=== PATIENT | female | born 1990 | race Two or more races ===

== ENCOUNTER 2017-06-16 10:15 | Inpatient (IN) | payer MEDICAID, SELFPAY ==
[2017-06-16] VITALS (18 sets, daily range): BP systolic 128–166; BP diastolic 66–99; PULSE 82–116; RESP 16–26; TEMP 36–37.4; O2SAT 85–96; BMI 43.9; BMI 45.7; BMI 45.8
--- NOTE | 2017-06-16 10:31 | EKG12_ITS ---
Test Reason : COUGH Blood Pressure : / mmHG Vent. Rate : 099 BPM Atrial Rate : 099 BPM P-R Int : 146 ms QRS Dur : 080 ms QT Int : 340 ms P-R-T Axes : 052 056 032 degrees QTc Int : 436 ms Normal sinus rhythm Normal ECG Confirmed by SEAN JOSEPH, MARY ANN ([id number]), field map editor JOVANA MEZA ([id number] on 06/19/2017 2:02:41 PM Referred By: LA Confirmed By:MARY ANN ESTRADA MD
--- NOTE | 2017-06-16 10:33 | ED.VISSUMM ---
- ER Visit Summary Date of Service: 06/16/17 Chief Complaint: Cough and shortness of breath History of Present Illness: The patient is a 27 F who presents with cough and shortness of breath that has been getting worse over the past 3 days. Patient was seen in urgent care and was given a prescription for prednisone and a new inhaler. Patient has been taking this with no relief. Patient states she is coughing up some green sputum. Patient denies any fevers or chills. Patient does admit to some sharp chest pain with coughing. Patient denies any nausea or vomiting. Patient denies any rhinorrhea or sore throat. Patient does have a history of asthma. Physical Examination: Vital signs showed a blood pressure of 148/73, pulse of 107, respiratory rate of 26, temperature of 96.8, and pulse oximeter of 92% on room air. Oral mucosa is pink and moist. Neck is supple. There is no JVD noted. Heart was regular and tachycardic. Lungs showed diffuse wheezing. There is good respiratory effort noted. There are no retractions noted. Abdomen is soft and nontender. Bowel sounds are normal. Cranial nerves II through XII are intact. There are no focal motor or sensory deficits noted. The remaining physical exam is within normal limits. Test Results: EKG shows a normal sinus rhythm with a rate of 99. There are no acute ST or T-wave changes noted. There are no changes compared to previous EKG dated 07/07/2016. CBC showed a leukocytosis of 15.8. Basic metabolic profile is within normal limits. Chest x-ray shows diffuse patchy infiltrates in the right upper lobe, right lower lobe, left upper lobe, and left lower lobe. Emergency Department Course and Treatment: 2 blood cultures were obtained. Patient was started on Rocephin and Zithromax. Patient was given a DuoNeb aerosol here. Case was discussed with Dr. Bill. She will admit the patient to her service. Disposition: Admission to hospital Impression: Community-acquired pneumonia, hypoxia This note was generated with [employer] dictation software. It may contain incorrect words, spelling, and punctuation that were not noted in review of the chart prior to signing ED Disposition - Plan for ED Patient: Disposition: Acute Care Hospital [facility] Chief Complaint: Cough Diagnosis: Community acquired pneumonia, Hypoxia Referrals: Germaine Soto DO [Primary Care Provider] -
[2017-06-16] MEDS: Ipratropium/Albuterol Sulfate 3 ML AMPUL.NEB INHALATION ×3 (10:36→21:37)
--- NOTE | 2017-06-16 10:42 | ED.DCSUM_ITS ---
- ER Visit Summary Date of Service: 06/16/17 Chief Complaint: Cough and shortness of breath History of Present Illness: The patient is a 27 F who presents with cough and shortness of breath that has been getting worse over the past 3 days. Patient was seen in urgent care and was given a prescription for prednisone and a new inhaler. Patient has been taking this with no relief. Patient states she is coughing up some green sputum. Patient denies any fevers or chills. Patient does admit to some sharp chest pain with coughing. Patient denies any nausea or vomiting. Patient denies any rhinorrhea or sore throat. Patient does have a history of asthma. Physical Examination: Vital signs showed a blood pressure of 148/73, pulse of 107, respiratory rate of 26, temperature of 96.8, and pulse oximeter of 92% on room air. Oral mucosa is pink and moist. Neck is supple. There is no JVD noted. Heart was regular and tachycardic. Lungs showed diffuse wheezing. There is good respiratory effort noted. There are no retractions noted. Abdomen is soft and nontender. Bowel sounds are normal. Cranial nerves II through XII are intact. There are no focal motor or sensory deficits noted. The remaining physical exam is within normal limits. Test Results: EKG shows a normal sinus rhythm with a rate of 99. There are no acute ST or T-wave changes noted. There are no changes compared to previous EKG dated 07/07/2016. CBC showed a leukocytosis of 15.8. Basic metabolic profile is within normal limits. Chest x-ray shows diffuse patchy infiltrates in the right upper lobe, right lower lobe, left upper lobe, and left lower lobe. Emergency Department Course and Treatment: 2 blood cultures were obtained. Patient was started on Rocephin and Zithromax. Patient was given a DuoNeb aerosol here. Case was discussed with Dr. Bill. She will admit the patient to her service. Disposition: Admission to hospital Impression: Community-acquired pneumonia, hypoxia This note was generated with [employer] dictation software. It may contain incorrect words, spelling, and punctuation that were not noted in review of the chart prior to signing ED Disposition - Plan for ED Patient: Disposition: Acute Care Hospital [facility] Chief Complaint: Cough Diagnosis: Community acquired pneumonia, Hypoxia Referrals: Germaine Soto DO [Primary Care Provider] -
[2017-06-16 10:47] LABS: Absolute Lymphocyte Count 1.84 X10^3/ul (0.83-4.51); Absolute Neutrophil Count 12.4 X10^3/uL (2.0-7.7); Basophil# 0.04 X10^3/uL; Basophil% 0.3 % (0-1); Eosinophil# 0.32 X10^3/uL; Hematocrit 47.2 % (37-47); Hemoglobin 16.4 g/dl (12.0-15.0); Lymphocyte # 1.84 X10^3/ul (4.0); Lymphocyte % 11.6 % (19-41); Mean Corp Hgb Conc 34.7 g/gl (32-36); Mean Corpuscular Hgb 30.1 pg (27.0-32.0); Mean Corpuscular Volume 86.6 fL (81-99); Mean Platelet Vol. 11.2 fl (6.2-12.0); Monocyte# 1.18 X10^3/uL; Monocyte% 7.4 % (0-10); Neutrophil # 12.41 X10^3/uL (2.7-7.7); Neutrophil % 78.4 % (47-70); Platelet Count 128 K/mm3 (150-450); RBC Distribution Width CV 12.7 % (11.6-14.6); RBC Distribution Width SD 39.9 fl (35.1-43.9); Red Blood Count 5.45 M/mm3 (4.2-5.4); White Blood Count 15.8 K/mm3 (4.4-11.0)
[2017-06-16 10:48] LABS: POSITIVE COUNT NO; POSITIVE DIFFERENTIAL NO; POSITIVE MORPHOLOGY NO
--- NOTE | 2017-06-16 11:01 | RAD_ITS ---
STUDY: X-RAY CHEST REASON FOR EXAM: Female, 27 years old. Shortness of breath and cough for 3 weeks. TECHNIQUE: Frontal and lateral views of the chest. COMPARISON: None. FINDINGS: There are patchy opacities in the right upper lobe, right lower lobe, left upper lobe and left lower lobe. The findings are compatible with multi lobar early/developing pneumonia. There is no demonstrated pleural abnormality. Normal size heart. Normal mediastinum and zoie. Normal visualized pulmonary arteries. Normal visualized aortic arch and descending thoracic aorta. Normal visualized thoracic spine. Normal visualized ribs, clavicles, and shoulders. There is no demonstrated abnormality of the visualized soft tissue structures of the upper abdomen. RAD/Chest PA and Lateral IMPRESSION: Findings compatible with pneumonia, as outlined above. Electronically Signed: Nelson Sharma MD at 11:26 EDT , Service support ,
[2017-06-16 11:04] LABS: Anion Gap 6 (5-15); BUN 12 mg/dL (7-18); BUN/Creat Ratio 17.4 RATIO (10-20); Chloride 104 mmol/L (98-107); Creatinine, Serum 0.69 mg/dL (0.55-1.02); EST Glomerular Filtration Rate 109 mL/min (>60); Est Glom Filt Rate - Afr Amer 132 mL/min (>60); Estimated Creatinine Clearance 111.18 ml/min; Glucose 115 mg/dL (74-106); Potassium 3.6 mmol/L (3.5-5.1); Sodium Level 138 mmol/L (136-145)
[2017-06-16] MEDS: Ceftriaxone 1 GM/50 ML BAG IV ×2 (12:09→21:32)
--- NOTE | 2017-06-16 12:16 | PCM.PN.HOSP ---
Vitals/I&O's: Vital Signs Temp Pulse Resp BP Pulse Ox 96.8 F L 108 H 20 H 157/87 H 85 06/16/17 10:15 06/16/17 10:39 06/16/17 10:39 06/16/17 10:37 06/16/17 10:37 Oxygen Delivery Method Non-Rebreather Weight: 119.7 kg Body Mass Index (BMI) 43.9 Laboratory Results 06/16/17 10:35: WBC 15.8 H, RBC 5.45 H, Hgb 16.4 H, Hct 47.2 H, MCV 86.6, MCH 30.1, MCHC 34.7, RDW 12.7, RDW Differential 39.9, Plt Count 128 L, MPV 11.2, Immature Gran % (Auto) 0.300, Neut % (Auto) 78.4 H, Lymph % (Auto) 11.6 L, [place] % (Auto) 7.4, Eos % (Auto) 2.0, Baso % (Auto) 0.3, Absolute Neuts (auto) 12.4 H, Absolute Lymphs (auto) 1.84, Total Counted Not Reportable 06/16/17 10:35: Sodium 138, Potassium 3.6, Chloride 104, Carbon Dioxide 28.0, Anion Gap 6, BUN 12, Creatinine 0.69, Estim Creat Clear Calc 111.18, Est GFR (MDRD) Af Amer 132, Est GFR (MDRD) Non-Af 109, BUN/Creatinine Ratio 17.4, Glucose 115 H, Calcium 9.0 Current Medications Azithromycin 500 mg/ Dextrose 255 mls @ 250 mls/hr IV X1 ONE Stop: 06/16/17 12:52 Ceftriaxone Sodium (Rocephin) 1 gm in 50 mls @ 100 mls/hr IV X1 ONE Stop: 06/16/17 12:20 Last Admin: 06/16/17 12:09 Dose: 100 mls/hr Medical Necessity - Tobacco Use Smoking Status: Current every day smoker
--- NOTE | 2017-06-16 13:32 | PCM.HP.STD ---
Problem List (1) Depression Status: Chronic Qualifiers: Depression Type: unspecified Qualified Code(s): F32.9 - Major depressive disorder, single episode, unspecified (2) Community acquired pneumonia Status: Acute Qualifiers: Laterality: unspecified laterality Qualified Code(s): J18.9 - Pneumonia, unspecified organism (3) Hypoxia Status: Acute History of Present Illness Date of Admission: 06/16/17 Chief Complaint: Shortness of breath - 3 days The patient is a 27 year old F with past medical history of depression, morbid obesity comes in with complaints of shortness of breath ongoing for 3 days. Patient had had cough that was productive and had gone to the urgent care and was diagnosed with bronchitis and given azithromycin and prednisone. She notes that she became progressively worse, feeling for a short of breath ongoing for the last 3 days. She denied any fever or chills or dizziness or palpitations. She came to the ED and was found to be hypoxic. L show blood pressure 148/73, heart rate of 107, respiratory rate is 28, temperature of 96.8. Admitting blood work showed RBC count of 15.8, hemoglobin 16.4, platelet count of 128, normal chemistries. chest x-ray showed patchy infiltrates. 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 Denies: Anorexia, Chills, Fever, Night Sweats, Weight Change Eyes: Denies: Blurred vision, Cataracts, Conjunctivae Inflammation, Double vision, Drainage HEENT: Denies: Difficulty Hearing, Difficulty Swallowing, Head Aches, Hearing Changes, Nasal bleeding, Sinus Congestion, Sinus Drainage Cardiovascular: Denies: Chest Pain, Claudication, Chest Pressure, Orthopnea, Palpitations, Paroxysmal Noc. Dyspnea Respiratory: Reports: Cough, Shortness of Breath, Shortness of breath at rest, Shortness of breath upon exertion, Sputum production Gastrointestinal: Denies: Abdominal Pain, Hematemesis, Hematochezia, Nausea, Vomiting Genitourinary: Denies: Dysuria, Frequency, Incontinence Gynecological: Denies: Breast symptoms, Excessively long or heavy periods Musculoskeletal: Denies: Joint Pain, Joint stiffness, Joint swelling, Joint Tenderness Skin: Denies: Rash, Wounds Neurological: Denies: Numbness, Tingling, Focal weakness Psychiatric: Denies: Anxiety, Depression, Homicidal Ideations, Suicidal Ideations Hematologic/ Lymphatic: Denies: Easy Bruising, Easy Bleeding VTE Information - Inpt Only VTE Present on Admission: No VTE Pharm Prophylaxis ordered?: Yes Patient Problems: Active and Suspected Problems Community acquired pneumonia (Acute) Hypoxia (Acute) - Physical Exam General: Alert, Oriented x3, Cooperative, - - Morbidly obese, in mild respiratory distress, on nonrebreather HEENT: Atraumatic, PERRLA, EOMI, Normocephalic Oral: Moist Mucosa Neck: Supple Lungs: Normal air movement, Diminished, Wheezes Cardiovascular: Regular rate, Regular Rhythm, Normal S1, Normal S2, No murmurs Abdomen: Bowel Sounds Present, Soft, Non Tender, Non-Distended, No Hepato-splenomegaly Extremities: No edema Skin: No rashes, No breakdown Musculoskeletal: No Tenderness to Palpation of Joints or Extremities Neurological: Cranial nerves II-XII grossly intact Psych/Mental Status: Normal Affect, Appropriate Vital Signs Temp Pulse Resp BP Pulse Ox 96.8 F L 103 H 19 H 166/99 H 96 06/16/17 10:15 06/16/17 13:06 06/16/17 13:06 06/16/17 13:06 06/16/17 13:06 Oxygen Delivery Method Venturi Mask Assessment/Plan Active and Suspected Problems Community acquired pneumonia (Acute) Hypoxia (Acute) 27 year old F with past medical history of depression, morbid obesity comes in with complaints of shortness of breath ongoing for 3 days. She does recently being treated for bronchitis in urgent care and given azithromycin and prednisone. 1. Acute hypoxic respiratory insufficiency secondary to bilateral community-acquired pneumonia, on nonrebreather at the time of being examined Plan: Admit to PCU, managed on oxygen therapy, wean off for SPO2 more than 94%, incentive spirometer, breathing treatments as needed 2. Sepsis(tachycardia, leukocytosis) secondary to Bilateral community-acquired pneumonia in the setting of recent respiratory illness, chest x-ray shows bilateral patchy infiltrates, will continue on IV ceftriaxone, azithromycin and add vancomycin for MRSA, MRSA PCR, urine for Legionella and streptococcal antigen, blood cultures ?2 taken the ER and pending, trend labs in the morning, respiratory panel, droplet isolation until results of panel, 3. Depression, continue on home medication 4. Morbid obesity, diet and exercise recommended 5. DVT prophylaxis with ambulation Code Visit Inpatient E&M: 03871 Subs Hosp L3
[2017-06-16] MEDS: 0.9% Normal Saline 1,000 ML 75 ML IV (14:52)
--- NOTE | 2017-06-16 15:06 | PCM.RX.CS ---
Consult Pharmacy has been consulted to manage selected antiobiotic: Vancomycin Type of Consult: New start Suspected Infection: Pneumonia Labs: Sodium 138 mmol/L (136-145) 06/16/17 10:35 Potassium 3.6 mmol/L (3.5-5.1) 06/16/17 10:35 Chloride 104 mmol/L (98-107) 06/16/17 10:35 Carbon Dioxide 28.0 mmol/L (21.0-32.0) 06/16/17 10:35 Anion Gap 6 (5-15) 06/16/17 10:35 BUN 12 mg/dL (7-18) 06/16/17 10:35 Creatinine 0.69 mg/dL (0.55-1.02) 06/16/17 10:35 Est GFR (MDRD) Af Amer 132 mL/min (>60) 06/16/17 10:35 Est GFR (MDRD) Non-Af 109 mL/min (>60) 06/16/17 10:35 BUN/Creatinine Ratio 17.4 RATIO (10-20) 06/16/17 10:35 Glucose 115 mg/dL (74-106) H 06/16/17 10:35 Weight used for dosin.7 kg Estimated Creatinine Clearance: 111 ml/min Goal Trough: 15-20 mcg/mL Pharmacy Plan for Drug Dosing: Renal function reviewed with Cr 0.7 and CrCl 111 Initial dose to be 1500mg IV q8h Will get trough level before 5th dose on 5.5.18 @4990 Pharmacy Service will continue to monitor and adjust dosing as required.
--- NOTE | 2017-06-16 15:13 | PHA.PHARE_ITS ---
Consult Pharmacy has been consulted to manage selected antiobiotic: Vancomycin Type of Consult: New start Suspected Infection: Pneumonia Labs: Sodium 138 mmol/L (136-145) 06/16/17 10:35 Potassium 3.6 mmol/L (3.5-5.1) 06/16/17 10:35 Chloride 104 mmol/L (98-107) 06/16/17 10:35 Carbon Dioxide 28.0 mmol/L (21.0-32.0) 06/16/17 10:35 Anion Gap 6 (5-15) 06/16/17 10:35 BUN 12 mg/dL (7-18) 06/16/17 10:35 Creatinine 0.69 mg/dL (0.55-1.02) 06/16/17 10:35 Est GFR (MDRD) Af Amer 132 mL/min (>60) 06/16/17 10:35 Est GFR (MDRD) Non-Af 109 mL/min (>60) 06/16/17 10:35 BUN/Creatinine Ratio 17.4 RATIO (10-20) 06/16/17 10:35 Glucose 115 mg/dL (74-106) H 06/16/17 10:35 Weight used for dosin.7 kg Estimated Creatinine Clearance: 111 ml/min Goal Trough: 15-20 mcg/mL Pharmacy Plan for Drug Dosing: Renal function reviewed with Cr 0.7 and CrCl 111 Initial dose to be 1500mg IV q8h Will get trough level before 5th dose on 5.5.18 @2130 Pharmacy Service will continue to monitor and adjust dosing as required.
[2017-06-16] MEDS: Famotidine 20 MG Tablet PO (21:31)
[2017-06-16] MEDS: guaiFENesin 1,200 MG Tablet 1200 MG PO (21:31)
[2017-06-17] VITALS (20 sets, daily range): BP systolic 126–144; BP diastolic 69–74; PULSE 37–99; RESP 16–18; TEMP 36.6–37.7; O2SAT 92–96
[2017-06-17] MEDS: Ipratropium/Albuterol Sulfate 3 ML AMPUL.NEB INHALATION ×7 (00:53→23:12)
[2017-06-17] MEDS: 0.9% Normal Saline 1,000 ML 75 ML IV (06:14)
[2017-06-17 06:19] LABS: Hematocrit 43.5 % (37-47); Hemoglobin 14.3 g/dl (12.0-15.0); Mean Corp Hgb Conc 32.9 g/gl (32-36); Mean Corpuscular Hgb 29.2 pg (27.0-32.0); Mean Corpuscular Volume 88.8 fL (81-99); Mean Platelet Vol. 10.8 fl (6.2-12.0); Platelet Count 123 K/mm3 (150-450); RBC Distribution Width CV 12.9 % (11.6-14.6); RBC Distribution Width SD 41.6 fl (35.1-43.9); White Blood Count 9.3 K/mm3 (4.4-11.0)
[2017-06-17 06:41] LABS: Anion Gap 6 (5-15); BUN 7 mg/dL (7-18); BUN/Creat Ratio 10.4 RATIO (10-20); Calcium,Total 8.4 mg/dL (8.5-10.1); Chloride 106 mmol/L (98-107); Creatinine, Serum 0.67 mg/dL (0.55-1.02); EST Glomerular Filtration Rate 113 mL/min (>60); Est Glom Filt Rate - Afr Amer 137 mL/min (>60); Glucose 114 mg/dL (74-106); Potassium 3.9 mmol/L (3.5-5.1); Sodium Level 142 mmol/L (136-145)
[2017-06-17 06:50] LABS: Scan Indicated on CBC? Y/N NO
[2017-06-17] MEDS: guaiFENesin 1,200 MG Tablet 1200 MG PO ×2 (09:59→21:13)
[2017-06-17] MEDS: Famotidine 20 MG Tablet PO ×2 (09:59→21:13)
[2017-06-17] MEDS: Ceftriaxone 1 GM/50 ML BAG IV (10:07)
--- NOTE | 2017-06-17 10:59 | PN_ITS ---
Patient Problems: Active and Suspected Problems Community acquired pneumonia (Acute) Hypoxia (Acute) Subjective: Patient was seen and examined. Feels much improved. Off oxygen, feels that her breathing is better with her breathing treatment. Denies any fever or chills or shortness of breath. Objective: Physical Exam General: Alert, Oriented x3, Cooperative, he has improved, on oxygen, getting breathing treatment HEENT: Atraumatic, PERRLA, EOMI, Normocephalic Oral: Moist Mucosa Neck: Supple Lungs: Normal air movement, Diminished, Wheezes Cardiovascular: Regular rate, Regular Rhythm, Normal S1, Normal S2, No murmurs Abdomen: Bowel Sounds Present, Soft, Non Tender, Non-Distended, No Hepato- splenomegaly Extremities: No edema Skin: No rashes, No breakdown Musculoskeletal: No Tenderness to Palpation of Joints or Extremities Neurological: Cranial nerves II-XII grossly intact Psych/Mental Status: Normal Affect, Appropriate Vitals/I&O's: Vital Signs Temp Pulse Resp BP Pulse Ox 98.3 F 88 17 138/71 H 94 06/17/17 09:56 06/17/17 09:56 06/17/17 09:56 06/17/17 09:56 06/17/17 09:56 Oxygen Flow Rate (L/min) 2 Oxygen Delivery Method Nasal Cannula Weight: 124.738 kg Body Mass Index (BMI) 45.7 Intake and Output for Last 24 Hours 06/15/17 06/16/17 06/17/17 23:59 23:59 23:59 Intake Total 2453 / 2453 731 / 731 Balance 2453 / 2453 731 / 731 Microbiology Past 72 Hours 06/16/17 15:03 Mucosa - Nasopharyngeal Respiratory Panel (PCR) - Final Rhinovirus 06/16/17 16:00 Urine, Clean Catch Streptococcus pneumoniae Antigen (M - Final 06/16/17 16:00 Urine, Clean Catch Legionella Antigen - Final Laboratory Results 06/17/17 05:58: Sodium 142, Potassium 3.9, Chloride 106, Carbon Dioxide 30.0, Anion Gap 6, BUN 7, Creatinine 0.67, Estim Creat Clear Calc 114.50, Est GFR ( MDRD) Af Amer 137, Est GFR (MDRD) Non-Af 113, BUN/Creatinine Ratio 10.4, Glucose 114 H, Calcium 8.4 L 06/17/17 05:58: WBC 9.3, RBC 4.90, Hgb 14.3, Hct 43.5, MCV 88.8, MCH 29.2, MCHC 32.9, RDW 12.9, RDW Differential 41.6, Plt Count 123 L, MPV 10.8 Current Medications Acetaminophen (Tylenol) 650 mg PO Q6H PRN PRN PRN Reason: Mild Pain (1-3)/Temp > 100.7 F Albuterol/Ipratropium (Duoneb) 3 ml INHALATION Q4H.RT ON LICENSE OF [facility] Last Admin: 06/17/17 07:23 Dose: 3 ml Bisacodyl (Dulcolax) 5 mg PO DAILY PRN PRN PRN Reason: Constipation Famotidine (Pepcid) 20 mg PO BID ON LICENSE OF [facility] Last Admin: 06/17/17 09:59 Dose: 20 mg Fluoxetine HCl (Prozac) 40 mg PO DAILY ON LICENSE OF [facility] Last Admin: 06/17/17 10:03 Dose: Not Given Guaifenesin (Mucinex) 1,200 mg PO BID ON LICENSE OF [facility] Last Admin: 06/17/17 09:59 Dose: 1,200 mg Sodium Chloride () 1,000 mls @ 75 mls/hr IV .[id number] ON LICENSE OF [facility] Last Admin: 06/17/17 06:14 Dose: 75 mls/hr Azithromycin 500 mg/ Dextrose 255 mls @ 250 mls/hr IV Q24 ON LICENSE OF [facility] Stop: 06/19/17 11:02 Ceftriaxone Sodium (Rocephin) 1 gm in 50 mls @ 100 mls/hr IV Q12 ON LICENSE OF [facility] Last Admin: 06/17/17 10:07 Dose: 100 mls/hr Vancomycin HCl 1,500 mg/ (Sodium Chloride) 530 mls @ 250 mls/hr IV Q8H ON LICENSE OF [facility] Last Admin: 06/17/17 07:55 Dose: 250 mls/hr Magnesium Hydroxide (Milk Of Magnesia) 30 ml PO DAILY PRN PRN Reason: Constipation Ondansetron HCl (Zofran) 4 mg IV Q8H PRN PRN PRN Reason: NAUSEA Psyllium Hydrophilic Mucilloid (Metamucil) 1 packet PO DAILY PRN PRN PRN Reason: CONSTIPATION Sodium Chloride () 5 - 30 ml IV UD PRN PRN Reason: SALINE FLUSH Medical Necessity - Tobacco Use Smoking Status: Current every day smoker Tobacco Use: Cigarettes Assessment/Plan Active and Suspected Problems Community acquired pneumonia (Acute) Hypoxia (Acute) 27 year old F with past medical history of depression, morbid obesity comes in with complaints of shortness of breath ongoing for 3 days. She does recently being treated for bronchitis in urgent care and given azithromycin and prednisone. 1. Acute hypoxic respiratory insufficiency secondary to bilateral community- acquired pneumonia, improved, on room air, continue on incentive spirometer, will assess for ambulatory oxygen requirement in am. 2. Sepsis(tachycardia, leukocytosis) secondary to Bilateral community-acquired pneumonia/acute bronchitis secondary to rhinovirus, present on admission chest x-ray shows bilateral patchy infiltrates, on IV ceftriaxone, azithromycin and vancomycin. WBC count is improved to 9.3, continue the same and possibly switch to Augmentin and doxycycline from tomorrow. 3. Depression, continue on home medication 4. Morbid obesity, diet and exercise recommended 5. DVT prophylaxis with ambulation 6. Disposition: Possible discharge tomorrow if she continues to improve Code Visit Inpatient E&M: 13680 Subs Hosp L2
--- NOTE | 2017-06-17 14:06 | CASEMGMT ---
CM INITIAL ASSESSMENT: Home: Patient states she lives with her boyfriend, Elliot, in a one story home. HHS/Aides: Denies. DME: Denies Pharmacy: [facility] Advance Directives: Denies. Declines assistance at this time. PCP: Germaine Soto Specialists: Psychiatry - Kristal Shin at [facility]. Patient denies further mental health needs at this time. DC Plan: Home. CM will continue to follow for safe and effective discharge planning.
[2017-06-17 16:00] LABS: M R Staph aureus DNA By PCR Negative (Negative); Probe Check PASS; Specimen Processing Control PASS
[2017-06-18] VITALS (7 sets, daily range): BP systolic 126–138; BP diastolic 74–86; PULSE 77–100; RESP 15–18; TEMP 37.1–37.6; O2SAT 91–94
[2017-06-18 01:13] LABS: Vancomycin, Trough Level 8.7 ug/mL (5.0-15.0)
[2017-06-18] MEDS: Ipratropium/Albuterol Sulfate 3 ML AMPUL.NEB INHALATION ×3 (03:17→10:59)
--- NOTE | 2017-06-18 08:26 | PCM.DC ---
- Discharge Diagnoses Current Active Problems: Current Active and Chronic Problems Community acquired pneumonia (Acute) Hypoxia (Acute) Depression (Chronic) Reason(s) for Visit for Discharge Instructions: Cough, Shortness of breath You will use the following diet at home:: Regular Your food should be the consistency of: Regular Your liquids should be the consistency of: Regular/Thin Discharge Activity: Return to Normal Activity Additional Instructions: Complete all your antibiotics as prescribed. You are being discharged with a short course of steroids. Continue to use your inhaler every 4-6 hours round the clock for the next 2 days then use as needed. Allergies/Adverse Reactions: Allergies Penicillins Allergy (Verified 08/04/16 09:00) Rash Medications to take at Discharge Methylphenidate HCl [Concerta] 36 mg PO DAILY 06/16/17 Paroxetine HCl [Paxil] 40 mg PO DAILY 06/17/17 Doxycycline 100 mg PO DAILY #14 cap 06/18/17 Guaifenesin [Mucinex] 1,200 mg PO BID #14 tab 06/18/17 Prednisone 40 mg PO DAILY #10 tab 06/18/17 levoFLOXacin tablet [Levaquin tablet] 750 mg PO DAILY #7 tab 06/18/17 The following prescriptions were given: Doxycycline 100 mg PO DAILY #14 cap levoFLOXacin tablet [Levaquin tablet] 750 mg PO DAILY #7 tab Prednisone 40 mg PO DAILY #10 tab Guaifenesin [Mucinex] 1,200 mg PO BID #14 tab Please follow up with your Primary Care Physician in: within 2 weeks Proposed Discharge Date: 06/18/17
--- NOTE | 2017-06-18 08:33 | PCM.DC.SUM ---
Discharge Date and Diagnosis - Problem List Patient Problems: Active and Suspected Problems Community acquired pneumonia (Acute) Hypoxia (Acute) Date of Admission: 06/16/17 Date of Discharge: 06/18/17 - Primary Discharge Diagnosis Active and Suspected Problems Sepsis Bilateral Community acquired pneumonia (Acute) secondary to suspected atypical, gram positive and negative organisms Acute Rhinovirus bronchitis Hypoxia (Acute) - Secondary Discharge Diagnosis Chronic Problems Depression (Chronic) Morbid obesity Hospital Course and Treatment Imaging Results: Clinical Impression(s) from Imaging Studies Chest X-Ray 06/16/17 11:01 IMPRESSION: Findings compatible with pneumonia, as outlined above. Electronically Signed: Nelson Sharma MD at 11:26 EDT , Service support , None Operations: None Procedures: None Summary of Care Provided: 27 year old F with past medical history of depression, morbid obesity, asthma comes in with complaints of shortness of breath ongoing for 3 days. She was recently treated for bronchitis in urgent care and given azithromycin and prednisone. Patient was hypoxic in the ED, saturating 85% on Room air, managed subsequently on non-rebreather oxygen mask. CXR showed bilateral patchy right upper lobe, lower lobe, left upper lobe, lower lobe pneumonia. 1. Acute hypoxic respiratory insufficiency secondary to bilateral community-acquired pneumonia,managed on oxygen, wean off to room air, did not qualify for home oxygen. 2. Sepsis(tachycardia, leukocytosis) secondary to Bilateral community-acquired pneumonia, likely secondary to suspected atypical organisms, gram positive and gram negative. Most likely post viral bronchitis pneumonia. Urine for streptococcal and legionella antigen was negative. Blood cultures were still pending at the time of discharge. Managed on IV ceftriazone, azithromycin and vancomycin. WBC count improved, patient felt better clinically. Discharged on Levaquin and doxycycline for 1 week. 3. Acute bronchitis secondary to rhinovirus, present on admission, managed symptomatically with breathing treatments, discharged on prednisone. 4. Depression, continue on home medication 5. Morbid obesity - diet and exercise recommended Discharge Diet: No Restrictions Discharge Activity: Return to Normal Activity Home Medications: Medications to take at Discharge Methylphenidate HCl [Concerta] 36 mg PO DAILY 06/16/17 Paroxetine HCl [Paxil] 40 mg PO DAILY 06/17/17 Doxycycline 100 mg PO DAILY #14 cap 06/18/17 Guaifenesin [Mucinex] 1,200 mg PO BID #14 tab 06/18/17 Prednisone 40 mg PO DAILY #10 tab 06/18/17 levoFLOXacin tablet [Levaquin tablet] 750 mg PO DAILY #7 tab 06/18/17 Following Prescrptions Were Given to Patient: Doxycycline 100 mg PO DAILY #14 cap levoFLOXacin tablet [Levaquin tablet] 750 mg PO DAILY #7 tab Prednisone 40 mg PO DAILY #10 tab Guaifenesin [Mucinex] 1,200 mg PO BID #14 tab Primary Care Physician: Germaine Soto DO [Primary Care Provider] - Please follow up with your Primary Care Physician in: within 2 weeks Disposition: Home Minutes spent on discharge:: 40 Patient Condition:: Stable Medical Necessity - Tobacco Use Smoking Status: Current every day smoker Tobacco Use: Cigarettes Meaningful Use Info Meaningful Use Diagnoses (Choose all that apply): None applicable Code Visit Inpatient E&M: 41139 Disch Hosp
--- NOTE | 2017-06-18 08:44 | DS.PCM_ITS ---
Discharge Date and Diagnosis - Problem List Patient Problems: Active and Suspected Problems Community acquired pneumonia (Acute) Hypoxia (Acute) Date of Admission: 06/16/17 Date of Discharge: 06/18/17 - Primary Discharge Diagnosis Active and Suspected Problems Sepsis Bilateral Community acquired pneumonia (Acute) secondary to suspected atypical, gram positive and negative organisms Acute Rhinovirus bronchitis Hypoxia (Acute) - Secondary Discharge Diagnosis Chronic Problems Depression (Chronic) Morbid obesity Hospital Course and Treatment Imaging Results: Clinical Impression(s) from Imaging Studies Chest X-Ray 06/16/17 11:01 IMPRESSION: Findings compatible with pneumonia, as outlined above. Electronically Signed: Nelson Sharma MD at 11:26 EDT , Service support , None Operations: None Procedures: None Summary of Care Provided: 27 year old F with past medical history of depression, morbid obesity, asthma comes in with complaints of shortness of breath ongoing for 3 days. She was recently treated for bronchitis in urgent care and given azithromycin and prednisone. Patient was hypoxic in the ED, saturating 85% on Room air, managed subsequently on non-rebreather oxygen mask. CXR showed bilateral patchy right upper lobe, lower lobe, left upper lobe, lower lobe pneumonia. 1. Acute hypoxic respiratory insufficiency secondary to bilateral community- acquired pneumonia,managed on oxygen, wean off to room air, did not qualify for home oxygen. 2. Sepsis(tachycardia, leukocytosis) secondary to Bilateral community-acquired pneumonia, likely secondary to suspected atypical organisms, gram positive and gram negative. Most likely post viral bronchitis pneumonia. Urine for streptococcal and legionella antigen was negative. Blood cultures were still pending at the time of discharge. Managed on IV ceftriazone, azithromycin and vancomycin. WBC count improved, patient felt better clinically. Discharged on Levaquin and doxycycline for 1 week. 3. Acute bronchitis secondary to rhinovirus, present on admission, managed symptomatically with breathing treatments, discharged on prednisone. 4. Depression, continue on home medication 5. Morbid obesity - diet and exercise recommended Discharge Diet: No Restrictions Discharge Activity: Return to Normal Activity Home Medications: Medications to take at Discharge Methylphenidate HCl [Concerta] 36 mg PO DAILY 06/16/17 Paroxetine HCl [Paxil] 40 mg PO DAILY 06/17/17 Doxycycline 100 mg PO DAILY #14 cap 06/18/17 Guaifenesin [Mucinex] 1,200 mg PO BID #14 tab 06/18/17 Prednisone 40 mg PO DAILY #10 tab 06/18/17 levoFLOXacin tablet [Levaquin tablet] 750 mg PO DAILY #7 tab 06/18/17 Following Prescrptions Were Given to Patient: Doxycycline 100 mg PO DAILY #14 cap levoFLOXacin tablet [Levaquin tablet] 750 mg PO DAILY #7 tab Prednisone 40 mg PO DAILY #10 tab Guaifenesin [Mucinex] 1,200 mg PO BID #14 tab Primary Care Physician: Germaine Soto DO [Primary Care Provider] - Please follow up with your Primary Care Physician in: within 2 weeks Disposition: Home Minutes spent on discharge:: 40 Patient Condition:: Stable Medical Necessity - Tobacco Use Smoking Status: Current every day smoker Tobacco Use: Cigarettes Meaningful Use Info Meaningful Use Diagnoses (Choose all that apply): None applicable Code Visit Inpatient E&M: 63548 Disch Hosp
[2017-06-18] MEDS: Famotidine 20 MG Tablet PO (09:35)
[2017-06-18] MEDS: guaiFENesin 1,200 MG Tablet 1200 MG PO (09:35)
[2017-06-18] MEDS: Ceftriaxone 1 GM/50 ML BAG IV (10:43)
== END 2017-06-18 13:18 | disposition home or self-care (01) | DRG 416 ==
LOC: ED 12:13 → PCU 12:39
PROVIDERS: Admitting Provider Internal Medicine; Emergency Provider Emergency Medicine; Visit Provider Internal Medicine
DX: A41.9 Sepsis, unspecified organism (principal); J15.6 Pneumonia due to other Gram-negative bacteria; R06.89 Other abnormalities of breathing; R09.02 Hypoxemia; J20.6 Acute bronchitis due to rhinovirus; F17.210 Nicotine dependence, cigarettes, uncomplicated; J45.909 Unspecified asthma, uncomplicated; F32.9 Major depressive disorder, single episode, unspecified; E66.01 Morbid (severe) obesity due to excess calories; Z68.42 Body mass index [BMI] 45.0-49.9, adult; Z79.899 Other long term (current) drug therapy
CPT/HCPCS: 36415; 71046; 80048; 80202; 85025; 85027; 87040; 87449; 87633; 87641; 93005; 94640; 99251; 99285; 99406; J7030; J7040; G0463

== ENCOUNTER → 2018-05-09 17:23 | Outpatient (CLI) | payer MEDICAID, SELFPAY | PROVIDERS: Referring Provider Obstetrics & Gynecology; Visit Provider Obstetrics & Gynecology | DX: N39.0 Urinary tract infection, site not specified (principal) | CPT/HCPCS: 87086; 87088; 87186 ==

== ENCOUNTER → 2018-05-18 14:09 | Outpatient (CLI) | payer MEDICAID, SELFPAY ==
[2017-06-16 13:35] VITALS: BMI 45.7
[2018-05-23 15:19] LABS: HPV APTIMA, High Risk Positive (Negative)
== END ==
PROVIDERS: Visit Provider Obstetrics & Gynecology
DX: Z12.4 Encounter for screening for malignant neoplasm of cervix (principal)
CPT/HCPCS: 87624; 88175; G0145

== ENCOUNTER → 2019-10-03 07:03 | Outpatient (CLI) | payer OTHER, SELFPAY ==
[2019-10-03 08:13] LABS: Glucose 75GTT - Fasting 110 mg/dL (70-99)
[2019-10-03 08:18] LABS: Glucose 75GTT - 30 minutes 196 mg/dL (100-160)
[2019-10-03 08:26] LABS: Insulin 21.5 mU/L (2.6-37.6)
[2019-10-03 08:50] LABS: Glucose 75GTT - 60 minutes 163 mg/dL (100-160)
[2019-10-03 10:27] LABS: Glucose 75GTT - 120 minutes 119 mg/dL (70-140)
== END ==
LOC: LAB 07:04
PROVIDERS: Referring Provider Obstetrics & Gynecology Reproductive Endocrinology; Visit Provider Obstetrics & Gynecology Reproductive Endocrinology
DX: N96 Recurrent pregnancy loss (principal)
CPT/HCPCS: 36415; 82951; 82952; 83525

== ENCOUNTER 2020-08-14 12:20 | Emergency (ER) | payer BC, SELFPAY ==
[2020-08-14 12:21] VITALS: BP 129/76; PULSE 105; RESP 15; TEMP 36.3; O2SAT 99; BMI 44.7
--- NOTE | 2020-08-14 12:45 | US_ITS ---
STUDY: FIRST TRIMESTER OBSTETRICAL ULTRASOUND REASON FOR EXAM: Female, 30 years old RLQ pain, currently 14 weeks preg LMP: 05/11/2020 TECHNIQUE: Transabdominal and Transvaginal TECHNICAL QUALITY: Limited. Examination limited due to obesity. PRIOR ULTRASOUND: None. FINDINGS: There is visualization of a single gestational sac in a normal intrauterine position. The mean sac diameter (MSD) measures 6.46 cm. There is no demonstrated yolk sac. There is visualization of the placenta. The placenta lies on the posterior wall of the uterus. There is visualization of a live embryo. The crown-rump length (CRL) measures 6.81 cm, indicating an estimated gestational age (EGA) of 13 weeks, 1 days. There is demonstrated cardiac activity with a heart rate of 144 bpm. The estimated gestation age (EGA) by LMP is 13 weeks, 4 days. The estimated date of delivery (NGUYỄN) by LMP is 02/15/2021. The estimated gestation age (EGA) by US is 13 weeks, 1 days. The estimated date of delivery (GNUYỄN) by US is 02/18/2021. The uterus measures 13.3 cm x 7.6 cm x 6.7 cm. There is no demonstrated uterine fibroid. The cervix is closed. The right ovary was not visualized. The left ovary was not visualized. There is no fluid in the cul de sac. US/Init OB < 14Wks US IMPRESSION: Single live intrauterine gestation with a mean gestational age of 13 weeks and 1 day. Electronically Signed: Kin Mooney MD at 14:31 EDT , Service support ,
--- NOTE | 2020-08-14 12:58 | EDS_ITS ---
HPI History of Present Illness Chief Complaint: Abd Pain Informant: patient Narrative Narrative: Patient is a 30-year-old female with a past medical history of hypothyroidism who is currently 14 weeks who presents to the emerge department for right lower quadrant abdominal pain. Started earlier today. She states that she was in tears initially but it seems to have eased up slightly. She has not taken anything for this. No known aggravating relieving factors. She denies any vaginal bleeding or discharge. No urinary symptoms. No change in bowel movements. She states over the past week she has been nauseous and vomiting with the . She denies any fevers or chills. She states that she called her MAIL DELIVERY SUPERVISOR's office who referred her to the emergency department. Patient states she has had 2 other pregnancies which ended in miscarriage. PFSH PFSH Home Medications methylphenidate HCl [Concerta] 36 mg PO DAILY 06/16/17 [History Last Taken Unknown] paroxetine HCl [Paxil] 40 mg PO DAILY 06/17/17 [History Last Taken 06/15/17 08:00] doxycycline monohydrate 100 mg PO DAILY #14 cap 06/18/17 [Rx Last Taken Unknown] guaifenesin 1,200 mg PO BID #14 tab 06/18/17 [Rx Last Taken Unknown] levofloxacin 750 mg PO DAILY #7 tab 06/18/17 [Rx Last Taken Unknown] prednisone 40 mg PO DAILY #10 tab 06/18/17 [Rx Last Taken Unknown] ondansetron 4 mg PO Q8H 3 Days #9 tab 08/14/20 [Rx Last Taken Unknown] Allergy/AdvReac Type Severity Reaction Status Date / Time Penicillins Allergy Rash Verified 08/14/20 12:20 Social History Smoking Status: Current every day smoker tobacco type: cigarettes ROS ROS ED Constitutional Constitutional ED: Denies chills or fever(s) Eyes Eyes: Denies change in vision ENT ENT ED: Denies epistaxis or rhinorrhea Cardiovascular Cardiovascular: Denies chest pain or palpitations Respiratory/Chest Respiratory/Chest: Denies cough, dyspnea or dyspnea on exertion Gastrointestinal Gastrointestinal: Reports abdominal pain, nausea and vomiting; Denies diarrhea Genitourinary Genitourinary ED: Denies dysuria, hematuria or urinary frequency Musculoskeletal Musculoskeletal: Denies back pain or neck pain Integumentary Denies rash Neurologic Neurologic: Denies dizziness, headache(s) or weakness EXAM Physical Exam Const Vital Signs: 08/14/20 12:21 Temperature 97.4 F L Temperature Source Temporal Pulse Rate 105 H Respiratory Rate 15 Blood Pressure 129/76 H Blood Pressure Mean 93 Pulse Ox 99 Oxygen Delivery Method Room Air Positive well nourished and well developed General Appearance ED: well developed and NAD HEENT Reports normocephalic and head/scalp atraumatic Eyes PERRL and EOMs intact bilaterally Neck supple Chest Wall inspection of chest normal Resp normal respiratory effort and clear to auscultation bilaterally Auscultation: Negative for rales, rhonchi or wheezes Cardio regular rate, regular rhythm and no murmurs GI normal to inspection, nondistended, normoactive bowel sounds GI Narrative: Tenderness to right lower quadrant. This is very mild to deep palpation. Negative psoas sign. Negative Rovsing sign. Palpation: soft; Negative for guarding or rebound tenderness present Back/Spine no CVA tenderness Extremity normal to inspection General Extremety ED: Negative for edema or tenderness General Extremity: Negative for edema Neuro oriented x3, CN's II-XII intact bilaterally and no sensory deficits noted Sensorium / Orientation: alert Motor Exam: strength 5/5 throughout Psych mental status grossly normal Skin no rashes or lesions noted MDM MDM MDM Narrative Medical decision making narrative: Patient presents the ED for right lower quadrant pain. She has also been nauseous or vomiting but this is begun over the past week and she relates it to her . On arrival to the emergency department she is borderline tachycardic but otherwise vital signs are okay. She does have a very benign exam. Will check ultrasound of the pelvis as well as basic lab work. Ultrasound shows single live intrauterine . However did not reveal a high white blood cell count. She is not anemic. Liver enzymes within normal limits. She does not have acute electrolyte abnormality. Urine does have 2+ bacteria but also had 10-25 squamous epithelial cells. No other evidence of acute infection. With 0-5 white blood cells. We will hold off on doing any treatment of this. She has a benign exam. Of low concern for appendicitis. She is feeling better. She is requesting prescription for Zofran giving her nausea/vomiting. This will be called into her pharmacy. She is to follow-up with her PCP. She will for any systemic symptoms or worsening pain she needs to be reevaluated here in the ED. Lab Data Labs: Laboratory Results - last 24 hr 08/14/20 08/14/20 08/14/20 12:54 13:00 13:00 WBC 9.6 RBC 4.58 Hgb 13.8 Hct 40.1 MCV 87.6 MCH 30.1 MCHC 34.4 RDW Std Deviation 38.3 RDW Coeff of [place] 11.9 Plt Count 179 MPV 10.2 Immature Gran % (Auto) 0.400 Neut % (Auto) 66.2 Lymph % (Auto) 25.3 [place] % (Auto) 5.4 Eos % (Auto) 2.3 Baso % (Auto) 0.4 Absolute Neuts (auto) 6.3 Absolute Lymphs (auto) 2.42 Nucleated RBC % 0 Sodium 136 Potassium 4.0 Chloride 105 Carbon Dioxide 27.0 Anion Gap 4 L BUN 5 L Creatinine 0.49 L Estim Creat Clear Calc 152.44 Est GFR (MDRD) Af Amer 190 Est GFR (MDRD) Non-Af 157 BUN/Creatinine Ratio 10.1 Glucose 98 Calcium 9.4 Total Bilirubin 0.50 AST 8 L ALT 20 Alkaline Phosphatase 57 Total Protein 7.4 Albumin 3.7 Globulin 3.7 Albumin/Globulin Ratio 1.0 Urine Color Yellow Urine Clarity Cloudy Urine pH 8.0 Ur Specific [place] 1.010 Urine Protein Negative Urine Glucose (UA) Normal Urine Ketones Negative Urine Occult Blood Negative Urine Nitrite Negative Urine Bilirubin Negative Urine Urobilinogen Normal Ur Leukocyte Esterase 25 H Urine RBC 0 SEEN Urine WBC 0-5 SEEN Ur Squamous Epith Cells 10-25 SEEN Urine Bacteria 2+ Urine Mucus 0 SEEN Radiography Diagnostic Testing: Radiology Impression Obstetrics Ultrasound 08/14/20 12:45 IMPRESSION: Single live intrauterine gestation with a mean gestational age of 13 weeks and 1 day. Electronically Signed: Kin Mooney MD at 14:31 EDT , Service support , Discharge Plan Triage Chief Complaint: Abd Pain ED Provider: Dre Mckay Dx/Rx/DC Orders Clinical Impression: Abdominal pain Instructions: ED Abdominal Pain, Early Prescriptions: New ondansetron 4 mg tablet,disintegrating 4 mg PO Q8H 3 Days Qty: 9 RF: 0 No Action methylphenidate HCl [Concerta] 36 mg tablet extended release 24hr 36 mg PO DAILY RF: 0 paroxetine HCl [Paxil] 40 MG tablet 40 mg PO DAILY RF: 0 guaifenesin 1,200 MG tablet 1,200 mg PO BID Qty: 14 RF: 0 doxycycline monohydrate 100 MG capsule 100 mg PO DAILY Qty: 14 RF: 0 levofloxacin 750 MG tablet 750 mg PO DAILY Qty: 7 RF: 0 prednisone 20 MG tablet 40 mg PO DAILY Qty: 10 RF: 0 Primary Care Provider: Care Physician,No Primary Referrals: Care Physician,No Primary [Primary Care Provider] - Activity Restrictions/Additional Instructions: Please follow-up with your MAIL DELIVERY SUPERVISOR in 3-5 days. Disposition Disposition: Home, Self Care
[2020-08-14 13:00] LABS: Mucous, Urine 0 SEEN /hpf (<or=2+); Red Blood Cells-Urine 0 SEEN /hpf (0-5)
[2020-08-14 13:04] LABS: Color, Urine Yellow (Yellow); Glucose, Dipstick Normal (Normal); Ketone-Dipstick Negative (Negative); Leukocyte Esterase-Dipstick 25 /ul (Negative); Nitrite-Dipstick Negative (Negative); Occult Blood-Urine Negative /ul (Negative); Protein-Dipstick Negative (Negative); Urine Bilirubin Dipstick Negative (Negative); Urine Clarity Cloudy (Clear); Urine Urobilinogen Normal (Normal)
[2020-08-14 13:09] LABS: Absolute Lymphocyte Count 2.42 X10^3/uL (0.83-4.51); Absolute Neutrophil Count 6.3 X10^3/uL (2.0-7.7); Basophil# 0.04 X10^3/uL; Basophil% 0.4 % (0-1); Eosinophil# 0.22 X10^3/uL; Eosinophils% 2.3 % (0-5); Hematocrit 40.1 % (37-47); Hemoglobin 13.8 g/dL (12.0-15.0); Lymphocyte # 2.42 X10^3/ul (0.83-4.51); Lymphocyte % 25.3 % (19-41); Mean Corp Hgb Conc 34.4 g/dL (32-36); Mean Corpuscular Hgb 30.1 pg (27.0-32.0); Mean Corpuscular Volume 87.6 fL (81-99); Mean Platelet Vol. 10.2 fl (6.2-12.0); Monocyte# 0.52 X10^3/uL; Monocyte% 5.4 % (0-10); NRBC Flagged by Analyzer 0 % (0-5); Neutrophil # 6.33 X10^3/uL (2.7-7.7); Neutrophil % 66.2 % (47-70); Platelet Count 179 K/mm3 (150-450); RBC Distribution Width CV 11.9 % (11.6-14.6); RBC Distribution Width SD 38.3 fl (35.1-43.9); Red Blood Count 4.58 M/mm3 (4.2-5.4); White Blood Count 9.6 K/mm3 (4.4-11.0)
[2020-08-14 13:11] LABS: Squamous Epithelial Cells - UA 10-25 SEEN /hpf (5-10); White Blood Cells 0-5 SEEN /hpf (0-5)
[2020-08-14 13:12] LABS: Bacteria 2+ /hpf (None Seen)
[2020-08-14 13:28] LABS: AST(SGOT) 8 U/L (15-37); Alanine Aminotransfer ALT/SGPT 20 U/L (13-56); Albumin, Serum 3.7 g/dL (3.2-5.0); Alkaline Phosphatase 57 U/L (45-117); Anion Gap 4 (5-15); BUN 5 mg/dL (7-18); BUN/Creat Ratio 10.1 RATIO (10-20); Calcium,Total 9.4 mg/dL (8.5-10.1); Chloride 105 mmol/L (98-107); Creatinine, Serum 0.49 mg/dL (0.55-1.02); EST Glomerular Filtration Rate 157 mL/min (>60); Est Glom Filt Rate - Afr Amer 190 mL/min (>60); Estimated Creatinine Clearance 152.44 ml/min; Globulin 3.7 g/dL (2.2-4.2); Glucose 98 mg/dL (74-106); Protein, Total 7.4 g/dL (6.4-8.2); Sodium Level 136 mmol/L (136-145)
[2020-08-14 16:33] VITALS: BP 120/68; PULSE 88; RESP 18; O2SAT 99
== END 2020-08-14 16:33 | disposition home or self-care (01) ==
PROVIDERS: Emergency Provider Emergency Medicine
DX: O26.892 Other specified pregnancy related conditions, second trimester (principal); R10.31 Right lower quadrant pain; O99.332 Smoking (tobacco) complicating pregnancy, second trimester; F17.210 Nicotine dependence, cigarettes, uncomplicated; Z3A.14 14 weeks gestation of pregnancy
CPT/HCPCS: 76801; 80053; 81001; 85025; 99283; A4216